=== PATIENT | male | born 2005 | race Caucasian/White ===

== ENCOUNTER 2024-08-01 17:35 | Inpatient (IN) ==
[2024-08-01] MEDS: diphenhydrAMINE 50 MG/ML VIAL ONE (17:44)
[2024-08-01] MEDS: FAMOTIDINE 20MG IV PUSH 20 MG/5 ML SYR IV STA (17:44)
[2024-08-01] MEDS: diphenhydrAMINE 50 MG/ML VIAL IV STA (17:44)
[2024-08-01] MEDS: SODIUM CHLORIDE 0.9% 1,000 ML IV ONE (17:44)
[2024-08-01] MEDS: EPINEPHrine INJ 1 MG/ML AMP IM STA ×2 (17:45→18:29)
[2024-08-01] MEDS: EPINEPHrine ADULT AUTO-INJECT 0.3 MG SYR IM ONE ×2 (17:47→17:48)
[2024-08-01] MEDS: methylPREDNISolone 125 MG/2 ML VIAL IV STA (17:53)
[2024-08-01] MEDS: ONDANSETRON INJ 2 MG/ML 2 ML VIAL IV STA (17:53)
--- NOTE | 2024-08-01 18:05 | Emergency Department Note ---
History of Present Illness General Chief complaint: Allergic Reaction Stated complaint: ALLERGIC REACTION, NUTS History of Present Illness Provider complaint: allergic reaction and hives Onset (ago): minute(s) 15 Exposure: food (Tree nuts) Known history of allergy to: Tree nuts Symptoms: rash, itching, facial swelling, difficulty swallowing and difficulty breathing Maximum Pain Intensity: 3 Treatment prior to arrival: none Home Medications Medication Instructions Recorded Confirmed Type albuterol sulfate 90 mcg/actuation 2 puff inhalation TID 08/01/24 08/01/24 History aerosol inhaler famotidine 20 mg tablet 20 mg PO BID 08/01/24 08/01/24 History methylphenidate HCl 40 mg biphasic 40 mg PO QAM 08/01/24 08/01/24 History 50-50 capsule,extended release naproxen 500 mg tablet 500 mg PO BID PRN Pain 08/01/24 08/01/24 History ondansetron HCl 4 mg tablet 4 mg PO Q8H PRN n/v 08/01/24 08/01/24 History pantoprazole 40 mg tablet,delayed 40 mg PO DIRECTED 08/01/24 08/01/24 History release Allergies Allergy/AdvReac Type Severity Reaction Status Date / Time tree nut Allergy Severe Unknown Unverified 08/01/24 18:30 Past Med/Surg History Problem List (Updated 08/01/24 @ 19:49 by Daniela Bartholomew) Anaphylaxis (Acute) Medical History (Updated 08/01/24 @ 19:49 by Daniela Bartholomew) Asthma Surgical History No pertinent past surgical history Social History Smoking Status: Current every day smoker Tobacco Type: E-cigarettes / Vaping Hx Alcohol Use: Yes Alcohol type: beer and hard liquor Hx Substance Use: Yes Last Used Substance Other:: a week ago Substance Use Type Other:: mushrooms Preferred Language: Polish Communication Ability: Effective Vice [employer] Required: No Beliefs That Will Affect Care: None Current Living Situation: Other Current Living Situation Comment: with roommates at [facility] Other Information That Helps Us Care for You: No Feels Safe at Home: Yes Safety Concerns: Feels Safe At This Time Assistive Devices: None Physical Exam Vital Signs Vital Signs - 24 hr 08/01/24 17:36 08/01/24 17:40 08/01/24 17:44 Temperature 36.6 C Temperature Source Oral Pulse Rate 140 H 134 H Pulse Rate [Apical] 137 H Pulse Rate from SpO2 Sensor Respiratory Rate 30 H 27 H 20 Respiratory Effort / Characteristics Short of Breath Respiratory Depth Normal Respiratory Pattern Tachypnea Regular Blood Pressure 179/120 H 131/99 Blood Pressure [Right Arm] 176/130 H Blood Pressure Mean 139 109 Blood Pressure Mean [Right Arm] 145 Pulse Oximetry 92 94 93 Oxygen Delivery Method Room Air Room Air Room Air Oxygen Flow Rate Sepsis Recent Fever Within 48 Hours No No Sepsis New/Unexplained Change in Mental Status No No Sepsis Action Taken by Nursing Physician Notified No Action Required 08/01/24 17:51 08/01/24 17:54 08/01/24 17:57 Temperature Temperature Source Pulse Rate 133 H 132 H Pulse Rate [Apical] Pulse Rate from SpO2 Sensor 131 H 132 H Respiratory Rate 25 H 18 Respiratory Effort / Characteristics Respiratory Depth Respiratory Pattern Blood Pressure 136/107 H Blood Pressure [Right Arm] Blood Pressure Mean 112 Blood Pressure Mean [Right Arm] Pulse Oximetry 94 92 Oxygen Delivery Method Room Air Room Air Oxygen Flow Rate Sepsis Recent Fever Within 48 Hours Sepsis New/Unexplained Change in Mental Status Sepsis Action Taken by Nursing 08/01/24 17:58 08/01/24 18:01 08/01/24 18:01 Temperature Temperature Source Pulse Rate 135 H Pulse Rate [Apical] Pulse Rate from SpO2 Sensor Respiratory Rate Respiratory Effort / Characteristics Respiratory Depth Respiratory Pattern Blood Pressure 119/94 Blood Pressure [Right Arm] Blood Pressure Mean 105 Blood Pressure Mean [Right Arm] Pulse Oximetry 94 Oxygen Delivery Method Room Air Oxygen Flow Rate Sepsis Recent Fever Within 48 Hours Sepsis New/Unexplained Change in Mental Status Sepsis Action Taken by Nursing 08/01/24 18:01 08/01/24 18:03 08/01/24 18:09 Temperature Temperature Source Pulse Rate 127 H 137 H Pulse Rate [Apical] Pulse Rate from SpO2 Sensor 127 H 136 H Respiratory Rate 22 26 H Respiratory Effort / Characteristics Respiratory Depth Respiratory Pattern Blood Pressure 119/94 Blood Pressure [Right Arm] Blood Pressure Mean 105 Blood Pressure Mean [Right Arm] Pulse Oximetry 93 91 Oxygen Delivery Method Oxygen Flow Rate Sepsis Recent Fever Within 48 Hours Sepsis New/Unexplained Change in Mental Status Sepsis Action Taken by Nursing 08/01/24 18:10 08/01/24 18:12 08/01/24 18:15 Temperature Temperature Source Pulse Rate 132 H 130 H Pulse Rate [Apical] Pulse Rate from SpO2 Sensor 133 H 130 H Respiratory Rate 29 H 20 Respiratory Effort / Characteristics Respiratory Depth Respiratory Pattern Blood Pressure 120/90 Blood Pressure [Right Arm] Blood Pressure Mean 105 Blood Pressure Mean [Right Arm] Pulse Oximetry 90 90 Oxygen Delivery Method Room Air Oxygen Flow Rate Sepsis Recent Fever Within 48 Hours Sepsis New/Unexplained Change in Mental Status Sepsis Action Taken by Nursing 08/01/24 18:20 08/01/24 18:24 08/01/24 18:30 Temperature Temperature Source Pulse Rate 132 H 138 H Pulse Rate [Apical] Pulse Rate from SpO2 Sensor 132 H 138 H Respiratory Rate 19 33 H Respiratory Effort / Characteristics Respiratory Depth Respiratory Pattern Blood Pressure 138/95 Blood Pressure [Right Arm] Blood Pressure Mean 114 Blood Pressure Mean [Right Arm] Pulse Oximetry 93 Oxygen Delivery Method Room Air Oxygen Flow Rate Sepsis Recent Fever Within 48 Hours Sepsis New/Unexplained Change in Mental Status Sepsis Action Taken by Nursing 08/01/24 18:30 08/01/24 18:30 08/01/24 18:39 Temperature Temperature Source Pulse Rate 118 H Pulse Rate [Apical] Pulse Rate from SpO2 Sensor 118 H Respiratory Rate 27 H Respiratory Effort / Characteristics Respiratory Depth Respiratory Pattern Blood Pressure 124/86 124/86 Blood Pressure [Right Arm] Blood Pressure Mean 103 103 Blood Pressure Mean [Right Arm] Pulse Oximetry 94 Oxygen Delivery Method Nebulizer Oxygen Flow Rate 6 Sepsis Recent Fever Within 48 Hours Sepsis New/Unexplained Change in Mental Status Sepsis Action Taken by Nursing 08/01/24 18:40 08/01/24 18:42 08/01/24 19:00 Temperature Temperature Source Pulse Rate 119 H 114 H Pulse Rate [Apical] Pulse Rate from SpO2 Sensor 118 H 114 H Respiratory Rate 22 16 Respiratory Effort / Characteristics Respiratory Depth Respiratory Pattern Blood Pressure 147/84 H 155/93 H Blood Pressure [Right Arm] Blood Pressure Mean 112 113 Blood Pressure Mean [Right Arm] Pulse Oximetry 94 96 Oxygen Delivery Method Nasal Cannula Nasal Cannula Oxygen Flow Rate 2 3 Sepsis Recent Fever Within 48 Hours Sepsis New/Unexplained Change in Mental Status Sepsis Action Taken by Nursing 08/01/24 19:30 Temperature Temperature Source Pulse Rate 112 H Pulse Rate [Apical] Pulse Rate from SpO2 Sensor 112 H Respiratory Rate 20 Respiratory Effort / Characteristics Respiratory Depth Respiratory Pattern Blood Pressure 135/77 Blood Pressure [Right Arm] Blood Pressure Mean 96 Blood Pressure Mean [Right Arm] Pulse Oximetry 97 Oxygen Delivery Method Nasal Cannula Oxygen Flow Rate 3 Sepsis Recent Fever Within 48 Hours Sepsis New/Unexplained Change in Mental Status Sepsis Action Taken by Nursing Physical Exam HENT: Exam performed. - Head: Normocephalic and atraumatic. - Right Ear: External ear normal. No mastoid erythema - Left Ear: External ear normal. No mastoid erythema - Mouth/Throat: The oropharynx is clear and moist. No trismus in the jaw. No dental abscesses or uvula swelling. No oropharyngeal exudate or tonsillar abscesses. No tongue swelling. EYES: Conjunctivae and EOM are normal. Pupils are equal, round, and reactive to light. Right eye exhibits no discharge. Left eye exhibits no discharge. No scleral icterus. NECK: Normal range of motion. Neck supple. No JVD present. CV: Tachycardic rate, regular rhythm, normal heart sounds and intact distal pulses. There is no peripheral edema. Palpable radial pulses bue. PULM/CHEST: Effort normal and breath sounds normal. No respiratory distress. No stridor. He has no wheezes. He has no rales. - Chest Wall: He exhibits no tenderness. MUSC/SKEL: Normal range of motion. There is no peripheral edema, tenderness or deformity. NEURO: He is alert and oriented to person, place, and time. He has normal strength. No cranial nerve deficit or sensory deficit. Coordination and gait normal. GCS eye subscore is 4. GCS verbal subscore is 5. GCS motor subscore is 6. Cerebellar tests wnl. SKIN: Erythematous with bradycardia. Course Course 1740: The patient was evaluated in room A1. A complete history and physical exam was performed Cardiac monitoring: An order was placed for continuous cardiac monitoring. The monitor shows a rate of [] with [] rhythm interpreted by me 1800: Vital signs stable. Lungs clear to auscultation. Oxygen saturation stable. Will continue to monitor the patient. 182: Called to bedside by nursing. Patient is now hypoxic. Patient now wheezing. Patient states he feels worse. Repeat dose of epinephrine ordered for the patient. DuoNeb ordered for the patient. Patient be placed on supplemental oxygen. 185: Vital signs stable on supplemental oxygen via nasal cannula. Patient states he feels better after receiving second dose of epinephrine IM as well as breathing treatment. Lungs are now clear to auscultation bilaterally. No tongue swelling. No stridor. Mother reported to nursing that the patient has had bad anaphylactic reactions in the past and has had to be on epinephrine drips in the past. [facility] 1904: Vital signs stable supplemental oxygen. Patient states he feels much better. Patient no longer wheezing. No stridor. Lungs clear to auscultation bilaterally. Discussed case with Dr. Aguillon who states he will evaluate the patient for admission. Dr. Aguillon presented to bedside at this time. Administered Medications Albuterol (Albuterol 0.083% Nebu Soln 3 Ml Vial) 2.5 mg NEB Q4H DUYEN; Protocol Stop: 08/31/24 19:29 Last Admin: 08/01/24 20:40 Dose: 2.5 mg Documented By: ORLANDO Sodium Chloride (Nss) 1,000 mls @ 75 mls/hr IV .[id number] DUYEN Stop: 08/02/24 22:09 Last Admin: 08/01/24 20:44 Dose: 75 mls/hr Documented By: ORLANDO Potassium Chloride (K Ernst / Wtr) 10 meq in 100 mls @ 100 mls/hr IV Q1H DUYEN Stop: 08/01/24 23:29 Last Admin: 08/01/24 20:42 Dose: 100 mls/hr Documented By: ORLANDO Discontinued Medications Albuterol (Albut/Ipratrop 3mg/0.5mg Neb 3 Ml Vial) 3 ml NEB NOW STA; Protocol Stop: 08/01/24 18:25 Last Admin: 08/01/24 18:30 Dose: 3 ml Documented By: BRYN Albuterol (Albut/Ipratrop 3mg/0.5mg Neb 3 Ml Vial) Confirm Administered Dose 3 ml .ROUTE .STK-MED ONE Stop: 08/01/24 18:27 Last Admin: 08/01/24 18:30 Dose: Not Given Documented By: BRYN Diphenhydramine HCl (Diphenhydramine 50 Mg/Ml Vial) 50 mg IV NOW STA Stop: 08/01/24 17:39 Last Admin: 08/01/24 17:44 Dose: 50 mg Documented By: BRYN Diphenhydramine HCl (Diphenhydramine 50 Mg/Ml Vial) Confirm Administered Dose 50 mg .ROUTE .STK-MED ONE Stop: 08/01/24 17:42 Last Admin: 08/01/24 17:44 Dose: Not Given Documented By: RBYN Epinephrine HCl (Epinephrine Adult Auto-Inject 0.3 Mg Syr) Confirm Administered Dose 0.3 mg IM .STK-MED ONE Stop: 08/01/24 17:39 Last Admin: 08/01/24 17:47 Dose: Not Given Documented By: HS Epinephrine HCl (Epinephrine Inj 1 Mg/Ml Amp) 0.3 mg IM NOW STA Stop: 08/01/24 17:39 Last Admin: 08/01/24 17:45 Dose: 0.3 mg Documented By: HS Epinephrine HCl (Epinephrine Adult Auto-Inject 0.3 Mg Syr) Confirm Administered Dose 0.3 mg IM .STK-MED ONE Stop: 08/01/24 17:41 Last Admin: 08/01/24 17:48 Dose: Not Given Documented By: HS Epinephrine HCl (Epinephrine Inj 1 Mg/Ml Amp) 0.3 mg IM NOW STA Stop: 08/01/24 18:26 Last Admin: 08/01/24 18:29 Dose: 0.3 mg Documented By: BRYN Sodium Chloride (Nss) 1,000 mls @ 999 mls/hr IV .Q1H1M ONE Stop: 08/01/24 18:38 Last Infusion: 08/01/24 18:48 Dose: Infused Documented By: Admin: 08/01/24 17:44 Dose: 999 mls/hr Documented By: BRYN Famotidine (Pepcid 20mg Iv Push) 20 mg in 5 mls @ 2.5 mls/min IV NOW STA Stop: 08/01/24 17:39 Last Admin: 08/01/24 17:44 Dose: 2.5 mls/min Documented By: BRYN Lorazepam (Lorazepam 1 Mg/1 Ml Syr Ed Inj Use) 1 mg IV ONE STA Stop: 08/01/24 18:06 Last Admin: 08/01/24 18:07 Dose: 1 mg Documented By: BRYN Methylprednisolone (Methylprednisolone 125 Mg/2 Ml Vial) 125 mg IV NOW STA Stop: 08/01/24 17:39 Last Admin: 08/01/24 17:53 Dose: 125 mg Documented By: BRYN Ondansetron HCl (Ondansetron Inj 2 Mg/Ml 2 Ml Vial) 4 mg IV NOW STA Stop: 08/01/24 17:42 Last Admin: 08/01/24 17:53 Dose: 4 mg Documented By: BRYN Medical Decision Making Laboratory Data Attestation: I reviewed the patient's lab results. 08/01/24 19:00 08/01/24 19:00 Lab Results 08/01/24 Range/Units 19:00 WBC 18.68 H (4.8-10.8) K/ul RBC 4.65 L (4.70-6.10) M/uL Hgb 14.9 (14.0-18.0) g/dl Hct 40.0 L (42.0-52.0) % MCV 86.0 (80.0-100.0) fL MCH 31.8 (25.0-34.0) pg MCHC 37.2 H (32.0-36.0) g/dL RDW Std Deviation 37.1 (36.4-46.3) fL RDW Coeff of Dimple 11.8 (11.5-14.5) % Plt Count 472 H (130-400) K/uL MPV 9.6 (9.4-12.4) fL Immature Gran % (Auto) 0.3 % Neut % (Auto) 76.1 % Lymph % (Auto) 18.3 % [place] % (Auto) 3.9 % Eos % (Auto) 1.2 % Baso % (Auto) 0.2 % Neut # (Auto) 14.23 H (1.40-6.50) K/uL Lymph # (Auto) 3.41 H (1.20-3.40) K/uL [place] # (Auto) 0.73 H (0.11-0.59) K/uL Eos # (Auto) 0.22 (0.00-0.50) K/uL Baso # (Auto) 0.03 (0.00-0.20) K/uL Immature Gran # (Auto) 0.06 (0.01-0.20) K/uL Sodium 137 (136-145) mmol/L Potassium 3.2 L (3.5-5.1) mmol/L Chloride 107 (98-107) mmol/L Carbon Dioxide 23 (21-32) mmol/L Anion Gap 7 (3-11) BUN 11 (6-23) mg/dl Creatinine 0.77 (0.6-1.4) mg/dl Est Cr Clr Drug Dosing 165.3 ml/min eGFR 130.62 BUN/Creatinine Ratio 14.3 (10-20) Glucose 134 H (70-99(Fasting)) mg/dl Calcium 8.3 L (8.6-10.3) mg/dl Imaging Data Chest x-ray: Attestation: I personally reviewed and interpreted this imaging study as follows: My impression: Chest x-ray negative. Airway clear. No pneumothorax. No consolidation. No cardiomegaly or cephalization.. No free air under the diaphragm. No fractures of the skeletal structures. Radiologist's impression: Chest X-Ray 08/01/24 18:21 XR chest 1V portable CLINICAL HISTORY: sob TECHNIQUE: Single frontal radiograph of the chest was obtained. Comparison: None available at the time of this dictation. FINDINGS: No lines and tubes are seen. The cardiomediastinal silhouette is normal. The lungs are clear. No evidence of pleural effusion or pneumothorax. IMPRESSION: No acute abnormalities and in particular no radiographic evidence of pneumonia. ACT 112: Negative or not required by law. Electronically signed by: Clayton Sloan M.D. 08/01/2024 7:28 PM [facility] Narrative [facility] Narrative: 174: The patient was evaluated in room A1. A complete history and physical exam was performed Cardiac monitoring: An order was placed for continuous cardiac monitoring. The monitor shows a rate of [] with [] rhythm interpreted by me 1800: Vital signs stable. Lungs clear to auscultation. Oxygen saturation stable. Will continue to monitor the patient. 182: Called to bedside by nursing. Patient is now hypoxic. Patient now wheezing. Patient states he feels worse. Repeat dose of epinephrine ordered for the patient. DuoNeb ordered for the patient. Patient be placed on supplemental oxygen. 1852: Vital signs stable on supplemental oxygen via nasal cannula. Patient states he feels better after receiving second dose of epinephrine IM as well as breathing treatment. Lungs are now clear to auscultation bilaterally. No tongue swelling. No stridor. Mother reported to nursing that the patient has had bad anaphylactic reactions in the past and has had to be on epinephrine drips in the past. Will plan on admitting the patient to the [facility] team. 1904: Vital signs stable supplemental oxygen. Patient states he feels much better. Patient no longer wheezing. No stridor. Lungs clear to auscultation bilaterally. Discussed case with Dr. Aguillon who states he will evaluate the patient for admission. Dr. Aguillon presented to bedside at this time. Impression & Plan Anaphylaxis Critical Care Time Critical Care Time: Yes Total Critical Care Time: 65 I have personally spent greater than 65 minutes of critical care time in the direct management of this patient. This includes bedside care, interpretation of diagnostic studies, and testing, discussion with consultants, patient, and family members, and other required patient management activities. This 65 minutes is in excess of all separately billable procedures. Discharge Plan Visit Data Chief Complaint: Allergic Reaction Stated Complaint: ALLERGIC REACTION, NUTS ED Provider: aZin Padilla Discharge Problem: Anaphylaxis Patient Disposition: Admitted As Inpatient Discharge Instructions Interventions: ED Discharge Assessment Last Done: 08/01/24 21:09 Discharge Problem: Anaphylaxis Qualifiers: Encounter type: initial encounter Qualified Code(s): T78.2XXA - Anaphylactic shock, unspecified, initial encounter
[2024-08-01] MEDS: LORazepam 1 MG/1 ML SYR ED Inj Use IV STA (18:07)
[2024-08-01] MEDS: ALBUT/IPRATROP 3MG/0.5MG NEB 3 ML VIAL ONE (18:30)
[2024-08-01] MEDS: ALBUT/IPRATROP 3MG/0.5MG NEB 3 ML VIAL NEB STA (18:30)
[2024-08-01] MEDS ORDERED: LEVALBUTEROL 0.31MG/3 ML VIAL NEB PRN (19:20)
[2024-08-01] MEDS ORDERED: EPINEPHrine INJ 1 MG/ML AMP IM PRN (19:23)
[2024-08-01] MEDS ORDERED: ONDANSETRON INJ 2 MG/ML 2 ML VIAL IV PRN (19:29)
--- NOTE | 2024-08-01 19:29 | XRay Report ---
XR chest 1V portable CLINICAL HISTORY: sob TECHNIQUE: Single frontal radiograph of the chest was obtained. Comparison: None available at the time of this dictation. FINDINGS: No lines and tubes are seen. The cardiomediastinal silhouette is normal. The lungs are clear. No evid ence of pleural effusion or pneumothorax. IMPRESSION: No acute abnormalities and in particular no radiographic evidence of pneumonia. ACT 112: Negative or not required by law. Electronically signed by: Clayton Sloan M.D. 08/01/2024 7:28 PM
[2024-08-01 19:30] LABS: BUN Creatinine Ratio 14.3 (10-20); Calcium 8.3 mg/dl (8.6-10.3); Creatinine Clr Calc Pharmacy 165.3 ml/min; Potassium 3.2 mmol/L (3.5-5.1)
[2024-08-01 19:41] LABS: Basophils # (auto) 0.03 K/uL (0.00-0.20); Basophils % (auto) 0.2 %; Eosinophils # (auto) 0.22 K/uL (0.00-0.50); Eosinophils % (auto) 1.2 %; Hemoglobin 14.9 g/dl (14.0-18.0); Immature Granulocytes # (auto) 0.06 K/uL (0.01-0.20); Immature Granulocytes % (auto) 0.3 %; Lymphocytes # (auto) 3.41 K/uL (1.20-3.40); Lymphocytes % (auto) 18.3 %; Mean Corpuscular Hemoglobin 31.8 pg (25.0-34.0); Mean Corpuscular Hgb Conc 37.2 g/dL (32.0-36.0); Mean Platelet Volume 9.6 fL (9.4-12.4); Monocytes # (auto) 0.73 K/uL (0.11-0.59); Monocytes % (auto) 3.9 %; Neutrophils # (auto) 14.23 K/uL (1.40-6.50); Neutrophils % (auto) 76.1 %; Platelet Count 472 K/uL (130-400); RDW Coefficient of Variation 11.8 % (11.5-14.5); RDW Standard Deviation 37.1 fL (36.4-46.3); Red Blood Count 4.65 M/uL (4.70-6.10); White Blood Count 18.68 K/ul (4.8-10.8)
--- NOTE | 2024-08-01 19:44 | History & Physical Report ---
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 See above in HPI. Patient has history of needing multiple doses of epinephrine followed by epinephrine drip and ICU stay in the past. Patient received Benadryl, famotidine, Solu-Medrol in the ED. At bedside exam, no wheezing noted, patient on 3 L nasal cannula oxygen, patient reports improving symptoms. Epinephrine as needed every 5-minute, if needing more frequently, patient will need ICU transfer for possible epinephrine drip. Continue with famotidine, Solu-Medrol, Benadryl, albuterol nebulization currently scheduled/can de-escalate to as needed once respiratory status improves. Will monitor patient in PCU telemetry. N.p.o. for now, Continue with IV fluids. Diet can be resumed once deemed stable from anaphylaxis standpoint. F/u w/ booking police officer once discharged. Pt advised to carry epipen with him all the time. History of gout: Continue with IV PPI. Patient on IV Pepcid as well. DVT prophylaxis: SCDs, Expect discharge in less than 3 days. Full code History of Present Illness Chief Complaint: Anaphylactic reaction to tree nuts Primary Care Provider: Jimi Angel MD 19-year-old male with PMH of allergic reaction to tree nuts, past hospitalization with anaphylaxis [latest one in 2016, needed ICU stay and epinephrine drip], GERD diagnosed recently and on Protonix & Pepcid at home, asthma presented to the ED with developing allergic reaction after he ingested tree nut containing food today. He did not have EpiPen with him, his first EpiPen dose was in the ED. At presentation, patient was wheezing, had choking sensation, palpitation, had belly pain. After first dose of epi, he improved and then again he started getting wheezing and respiratory distress. He received another dose of epinephrine with improvement in his symptoms. No stridor or tongue swelling was noted per ED physician. Patient reports drinking alcohol over the weekends, reports vaping nicotine, denies recreational drug use. Full code as per my discussion with the patient and his family at bedside. Patient's friend/sister/mom were at bedside, medications were reviewed in detail, plan of care discussed in detail. They voiced understanding and were agreeable to plan of care. Allergies Allergy/AdvReac Type Severity Reaction Status Date / Time tree nut Allergy Severe Unknown Unverified 08/01/24 18:30 Home Medications Medication Instructions Recorded Confirmed Type albuterol sulfate 90 mcg/actuation 2 puff inhalation TID 08/01/24 08/01/24 History aerosol inhaler famotidine 20 mg tablet 20 mg PO BID 08/01/24 08/01/24 History methylphenidate HCl 40 mg biphasic 40 mg PO QAM 08/01/24 08/01/24 History 50-50 capsule,extended release naproxen 500 mg tablet 500 mg PO BID PRN Pain 08/01/24 08/01/24 History ondansetron HCl 4 mg tablet 4 mg PO Q8H PRN n/v 08/01/24 08/01/24 History pantoprazole 40 mg tablet,delayed 40 mg PO DIRECTED 08/01/24 08/01/24 History release Past Med/Surg History Problem List (Updated 08/01/24 @ 19:07 by Zain Padilla MD) Anaphylaxis (Acute) Medical History No acute medical problems Surgical History No pertinent past surgical history Social History Smoking Status: Current every day smoker Tobacco Type: E-cigarettes / Vaping Preferred Language: Faroese Feels Safe at Home: Yes Review of Systems Review of Systems: Negative otherwise mentioned in HPI. Physical Exam Physical Exam: GENERAL: Alert and oriented x3. NAD, on 3L NC O2. Flushed appearance of face and upper body skin. HEENT: No pallor, no icterus. Pupils equal, round and reactive to light. Oral mucosa moist. Mild lip swelling noted, no tongue swelling noted. NECK: No JVD, no neck masses. HEART: S1 and S2 heard. Regular rate and rhythm. Tachy in 110s. No murmur, no gallop. RESPIRATORY SYSTEM: Normal AP diameter. No accessory muscle use. No wheezing, no crackles. ABDOMEN: Soft, bowel sounds present, Mild epi tender noted, no distention. CENTRAL NERVOUS SYSTEM: No facial droop. Speech is clear. Obeys simple commands. Moves extremities. EXTREMITIES: No edema, no erythema seen. Results & Data Results & Data Vital Signs (Past 12 Hours) Vital Signs Temp Pulse Pulse Resp BP BP Pulse Ox 08/01/24 19:00 114 H 16 155/93 H 96 08/01/24 18:42 119 H 22 94 08/01/24 18:40 147/84 H 08/01/24 18:39 118 H 27 H 94 08/01/24 18:30 124/86 08/01/24 18:30 124/86 08/01/24 18:30 138 H 33 H 93 08/01/24 18:24 132 H 19 08/01/24 18:20 138/95 08/01/24 18:15 130 H 20 90 08/01/24 18:12 132 H 29 H 90 08/01/24 18:10 120/90 08/01/24 18:09 137 H 26 H 91 08/01/24 18:03 127 H 22 93 08/01/24 18:01 119/94 08/01/24 18:01 119/94 08/01/24 18:01 135 H 08/01/24 17:58 94 08/01/24 17:57 132 H 18 92 08/01/24 17:54 133 H 25 H 94 08/01/24 17:51 136/107 H 08/01/24 17:44 36.6 C 134 H 20 131/99 93 08/01/24 17:40 137 H 27 H 176/130 H 94 08/01/24 17:36 140 H 30 H 179/120 H 92 O2 Del Method O2 Flow Rate 08/01/24 19:00 Nasal Cannula 3 08/01/24 18:42 Nasal Cannula 2 08/01/24 18:40 08/01/24 18:39 Nebulizer 6 08/01/24 18:30 08/01/24 18:30 08/01/24 18:30 Room Air 08/01/24 18:24 08/01/24 18:20 08/01/24 18:15 Room Air 08/01/24 18:12 08/01/24 18:10 08/01/24 18:09 08/01/24 18:03 08/01/24 18:01 08/01/24 18:01 08/01/24 18:01 08/01/24 17:58 Room Air 08/01/24 17:57 Room Air 08/01/24 17:54 Room Air 08/01/24 17:51 08/01/24 17:44 Room Air 08/01/24 17:40 Room Air 08/01/24 17:36 Room Air (1) Anaphylaxis Encounter type: initial encounter Qualified Code(s): T78.2XXA - Anaphylactic shock, unspecified, initial encounter
[2024-08-01] MEDS: ALBUTEROL 0.083% NEBU SOLN 3 ML VIAL NEB SCH (20:40)
[2024-08-01] MEDS: POTASSIUM CHLORIDE / WTR 10 MEQ/100 ML PLCT IV SCH (20:42)
[2024-08-01] MEDS: SODIUM CHLORIDE 0.9% 1,000 ML IV SCH (20:44)
[2024-08-01] MEDS: diphenhydrAMINE 50 MG/ML VIAL IV SCH (23:13)
[2024-08-02] MEDS ORDERED: ALBUT/IPRATROP 3MG/0.5MG NEB 3 ML VIAL NEB SCH (01:00)
--- OUTSIDE RECORDS SUMMARY | 2024-08-02 04:05 | External Medical Summary | Summary of Care ---
Author Name Unknown Organization [facility] Address [address] [place] [address] Phone [phone] Care Team Providers Care Car Detailer Name Role Phone Jimi Angel MD Primary Care Provider [phone] Reason for Visit * Reason Comments Abdominal Pain ULQ Encounter Details Date Type Department Care Team (Latest Contact Info) Description 07/22/2024 6:40 PM EDT Convenient Care Visit [facility] [address] [place] [address] Blank Blevins PA-C [address] [facility] [address] Left flank pain*; Nausea and vomiting, unspecified vomiting type Allergies Active Allergy Reactions Criticality Noted Date Comments Peanut-Containing Drug Products Anaphylaxis High TREE NUTS documented as of this encounter (statuses as of 07/22/2024) Medications Medication Sig Dispensed Refills Start Date End Date Status EpiPen 2-Devon 0.3 MG/0.3ML Injection Solution Auto-injector For a severe reaction: Place orange end against the outer thigh, press firmly, hold in place for 10 seconds and go to the Emergency room. 1 Each 2 09/17/2021 Active ProAir HFA 108 (90 Base) MCG/ACT Inhalation Aerosol SolutionIndications:M ild intermittent cold-induced asthma without complication Inhale 2 Puffs by mouth in the morning and 2 Puffs at noon and 2 Puffs in the evening and 2 Puffs before bedtime. 18 g 3 07/19/2024 Active Methylphenidate HCl ER (LA) 40 MG Oral Capsule Extended Release 24 Hour (Ritalin LA)Indications:Attent ion deficit disorder (ADD) without hyperactivity Take 1 Capsule by mouth in the morning. In the morning. Do not cut, crush or chew. 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 021 History of drug abuse 08/26/2021 Attention deficit disorder (ADD) without hyperac tivity 08/26/2021 documented as of this encounter (statuses as of 07/22/2024) Immunizations Name Administration Dates Next Due COVID-19 mRNA, LNP-s, No Pre serve, 2-Dose Series (Moderna) 08/27/2021,07/30/2021 DTaP Dipth/Tet/Acell Pertussis (Infanrix), Peds 02/12/2007,07/24/2004,2003,05/08,2003 HIB PRP-T, 4 Dose, PF, IM (H iberix, ActHib) 04/24/2004,2003,2003,03/31 HPV Vaccine, 9-Valent 03/18/2022,07/26/2019,05/2019 Hepatitis B, 0-19 yrs 2003,2003,02/17 MMR - Measles/Mumps/Rubella Vaccine 02/12/2007,0 04/24/2004 Meningococcal MCV4P Conjugat e Vaccine (Menactra) 05/26/2019 OPV - Polio Virus Vaccine (Oral) 007,2003,2003,03/30 Pneumococcal Conjugate Vacc, 13 Valent (Prevnar) 07/24/2004,2003,2003,03/30 Seasonal Influenza Virus Vac cine, Unspecified Formulation 07/30/2021 Seasonal Influenza, PF, 6 M & above, IM , (FluLaval or Fluzone) 10/05/2023 TDAP (age 10 and older)(Boostrix) 03/18/2022 Varicella Vaccine (Chicken Pox) 03/07/2008,01/21 documented as of this encounter Social History Tobacco Use Types Packs/Day Years Used Date Smoking Tobacco: Former Cigarettes Q uit: 07/2019 PHQ-2 Answer Date Recorded PHQ Adult Total Score 0 05/24/2024 Hunger Vital Sign Answer Date Recorded Within the past 12 months, y ou worried that your food would run out before you got the money to buy more. Never true 05/24/20 24 Within the past 12 months, t he food you bought just didn't last and you didn't have money to get more. Never true 05/24/2024 Childcare Answer Date Recorded Do you feel overwhelmed with taking care of a child, family member or friend? No 05/24/2024 Does your family need help f inding childcare? (Household - for ages 0-17 years) Not on file 05/24/2024 Clothing Answer Date Recorded Have you been unable to get clothing when it was really needed? No 05/24/2024 Is your family able to get c lothes or diapers when needed? (Household - for ages 0-17 years) Not on file 05/24/2024 Personal Safety Answer Date Recorded Do you feel unsafe or have concerns for your saf ety? No 05/24/2024 Do you have concerns for you r family's safety? (Household - for ages 0-17 years) Not on file 05/24/2024 Utilities Answer Date Recorded Do you have trouble paying y our heating, water, or electric bill? No 05/24/2024 Is your family able to pay t he heat, water, or electric bill? (Household - for ages 0-17 years) Not on file 05/24/2024 Does your family have access to good internet? (Household - for ages 0-17 years) Not on file 05/24/2024 Employment Status Answer Date Recorded Are you unemployed or without regular income? No 05/24/2024 Does the household have a re gular source of income? (Household - for ages 0-17 years) Not on file 05/24/2024 Social Connections Answer Date Recorded How often do you feel lonely or isolated from th ose around you? Rarely 05/24/2024 Financial Resource Strain Answer Date R ecorded Do you have any trouble payi ng for your medications, or do you think you might in the future? Yes 05/24/2024 Does your family have troubl e paying for medicine? (Household - for ages 0-17 years) Not on file 05/24/2024 Transportation Needs Answer Date Record ed Do you have trouble getting a ride to medical visits or work? (Adult - for ages 18 years and over) Not on file 05/24/2024 Does your family have a hard time getting a ride to doctors visits? (Household - for ages 0-17 years) Not on file 05/24/2024 Has lack of transportation k ept you from medical appointments, meetings, work, or from getting things needed for daily living? Check all that apply. No 05/24/2024 Do you (or your family) have trouble finding or paying for a ride (transportation)? (Household - for ages 0-17 years) Not on file 05/24/2024 Housing Stability Answer Date Recorded Do you currently live in a s helter or have no steady place to sleep at night? No 05/24/2024 Do you think you are at risk of becoming homeless? (Adult - for ages 18 years and over) Not on file 05/24/2024 Does your family worry about paying for your home or becoming homeless? (Household - for ages 0-17 years) Not on file 0 05/24/2024 Are you homeless or worried that you might be in the future? No 05/24/2024 Are you (or your family) lola eless or worried that you might be in the future? (Household - for ages 0-17 years) Not on file Food Insecurity Answer Date Recorded Do you need food for this week? No 05/24/2024 Are you able to get enough f ood for your family? (Household - for ages 0-17 years) Not on file 05/24/2024 Does your family need food t his week? (Household - for ages 0-17 years) Not on file 05/24/2024 Do you always have enough fo od for your family? (Household - for ages 0-17 years) Not on file 05/24/2024 Sex and Gender Information Value Date Recorded Sex Assigned at Not on file Gender Identity Not on file Sexual Orientation Not on file Job Start Date Occupation Industry Not on file Not on file Not on file documented as of this encounter Last Filed Vital Signs Vital Sign Reading Time Taken Comments Blood Pressure 130/84 07/22/2024 6:43 PM EDT Pulse 72 07/22/2024 6:43 PM EDT Temperature 36.3 C (97.4 F) 07/22/2024 6:43 PM ED T Respiratory Rate 18 07/22/2024 6:43 PM EDT Oxygen Saturation 98% 07/22/2024 6:43 PM EDT Inhaled Oxygen Concentration - - Weight 75.9 kg (167 lb 6.4 oz) 07/22/2024 6:43 P M EDT Height 193 cm (6' 4") 07/22/2024 6:43 PM EDT Body Mass Index 20.38 07/22/2024 6:43 PM EDT documented in this encounter Progress Notes * Blank Blevins PA-C - 07/22/2024 6:40 PM EDT Subjective: Nursing Notes: Nilam Narayan, MED ASSIST 07/22/24 184 Signed Carmen Mosley is a 19 year old male who presents to walk-in clinic today complaining of Chief Complaint Patient presents with Abdominal Pain ULQ Brief history:pt presents this evening with ULQ discomfort. He states the pain radiates upwards andunder his rib area - ongoing since yesterday. When he sits in a shifted position leaning towards the left side of his body he states that helps the discomfort. Denies constipation - last BM was today Denies urge to urinate or burning with urination Onset/duration yesterday . Tried tylenol Effectiveness no Patient is accompanied by no one for today's visit. Sx are cough, LUQ pain x 1 day, N/V, vomited 2 times today, has nausea and feels like could throw up again Left side pain and points to left CVA area Pt has pain w walking. Is not able to get in a comfortable position no sick contacts at home. Sig med hx/risk factors: asthma, hx drug abuse , ADD, ZACH, peanut allergy no flu shot this year. Review of Systems Constitutional: Positive for activity change, appetite change and fatigue. Respiratory: Negative. Cardiovascular: Negative. Gastrointestinal: Positive for abdominal pain (left upper quadrant and radiates around), nausea andvomiting. Negative for abdominal distention, anal bleeding, blood in stool, constipation and diarrhea. Genitourinary: Positive for flank pain (left). Negative for dysuria, frequency, hematuria and urgency. Hematological: Negative for adenopathy. 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 1 Each 2 ProAir HFA 108 (90 Base) MCG/ACT Inhalation Aerosol Solution Inhale 2 Puffs by mouth in the morningand 2 Puffs at noon and 2 Puffs in the evening and 2 Puffs before bedtime. 18 g 3 Methylphenidate HCl ER (LA) 40 MG Oral Capsule Extended Release 24 Hour (Ritalin LA) Take 1 Capsuleby mouth in the morning. In the morning. Do not cut, crush or chew. 30 Capsule 0 No current facility-administered medications for this visit. 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 09/17/2021 ZACH (generalized anxiety disorder) 01/15/2022 Past Surgical History: Procedure Laterality Date [place] TONSILLECTOMY PRIMARY/SECONDARY LESS THAN AGE 12 2009 [place] TYMPANOSTOMY GENERAL ANESTHESIA 2002, 2003, 2004, 2008 REMOVAL OF ADENOIDS, AGE 12+ SINUS SURGERY PROCEDURE NEC 2008 Review of patient's allergies indicates: Allergen Reactions Peanut-Containing Drug Products Anaphylaxis TREE NUTS Objective: BP 130/84 | Pulse 72 | Temp 36.3 C (97.4 F) (Tympanic) | Resp 18 | Ht 1.93 m (6' 4") | Wt 75.9 kg (167 lb 6.4 oz) | SpO2 98% | BMI 20.38 kg/m | BSA 2.02 m Physical Exam Constitutional: General: He is in acute distress. Appearance: He is ill-appearing. He is not toxic-appearing or diaphoretic. Cardiovascular: Rate and Rhythm: Normal rate and regular rhythm. Abdominal: General: Bowel sounds are decreased. Palpations: There is no hepatomegaly or splenomegaly. Tenderness: There is abdominal tenderness in the left upper quadrant. There is left CVA tenderness,guarding and rebound. There is no right CVA tenderness. Negative signs include Domínguez's sign and McBurney's sign. Hernia: No hernia is present. Skin: General: Skin is warm and dry. Neurological: General: No focal deficit present. Psychiatric: Mood and Affect: Mood normal. Behavior: Behavior normal. ASSESSMENT/PLAN: Left flank pain (Primary) - URINALYSIS, POINT OF CARE (ENTER/EDIT) Nausea and vomiting, unspecified vomiting type - URINALYSIS, POINT OF CARE (ENTER/EDIT) Contacted [facility] ER and spoke with charge nurse and presented case and that pt will be goingto their ER. Return instruction reviewed with pt in detail. Reasons to report to the ED were also reviewed. Voiced understanding Advised to follow up if no improvement in 3-5days. Blank Blevins PA-C documented in this encounter Nursing Notes * Nilam Narayan MED ASSIST - 07/22/2024 6:46 PM EDT Carmen Mosley is a 19 year old male who presents to walk-in clinic today complaining of Chief Complaint Patient presents with Abdominal Pain ULQ Brief history:pt presents this evening with ULQ discomfort. He states the pain radiates upwards andunder his rib area - ongoing since yesterday. When he sits in a shifted position leaning towards the left side of his body he states that helps the discomfort. Denies constipation - last BM was today Denies urge to urinate or burning with urination Onset/duration yesterday . Tried tylenol Effectiveness no Patient is accompanied by no one for today's visit. documented in this encounter Plan of Treatment Health Maintenance Due Date Last Done Comments Yearly Wellness Visit 2007 Pneumococcal Vaccine: Pediat rics (0 to 5 Years) and At-Risk Patients (6 to 64 Years) (1 of 1 - PPSV23 or PCV20) 2009 07/24/2004, 2003, 2003, Additional history exists HIV Screening 2018 Hepatitis C Screening 2021 *SPIROMETRY ONCE FOR ASTHMA-ADULT 09/11/2022 COVID-19 Vaccine (3 - 2023-2 5 season) 2024 08/27/2021, 07/30/2021 Influenza Vaccine (FLU shot) (#1) 2024 10/05/2023, 09/10/2022, 07/30/2021 Depression Screening 05/24/2025 05/24/2024 DTap/Tdap Vaccines (7 - Td o r Tdap) 03/18/2032 03/18/2022, 02/12/2007, 07/24/2004, Additional history exists Hepatitis B Vaccine Completed 2003, 2003, 2003 MENINGOCOCCAL (MENACTRA/MENVEO) Completed 9 HPV (Gardasil) Vaccine Completed , 07/26/2019, 05/26/2019 documented as of this encounter Medical Devices Not on filedocumented as of this encounter Procedures Procedure Name Priority Date/Time Associated Diagnosis Comments URINALYSIS, POINT OF CARE (ENTER/EDIT) Routine 07/22/2024 7:03 PM EDT Left flank pain Nausea and vomiting, unspecified vomiting type documented in this encounter Results * (ABNORMAL) URINALYSIS, POINT OF CARE (ENTER/EDIT) (07/22/2024 7:03 PM EDT) Color, Urine Yellow Yellow or Light Yellow Clarity, Urine Cloudy(A) Clear Glucose, Urine Negative Negative mg/dL Bilirubin, Urine Negative Negative Ketone, Urine Negative Negative mg/dL Specific [place], Urine 1.025 1.003 - 1.030 Blood, Urine Negative Negative pH, Urine 7.0 5.0 - 7.5 units Protein, Urine 30(A) Negative mg/dL Urobilinogen, Urine 1.0 0.2 - 1.0 mg/dL Nitrite, Urine Negative Negative Esterase, Urine Negative Negative Urine 07/22/2024 7:03 PM EDT Blank Blevins PA-C LAB POINT OF C ARE TEST ENTER/EDIT ORDERABLES documented in this encounter Visit Diagnoses Diagnosis Left flank pain- Primary Abdominal pain, unspecified site Nausea and vomiting, unspecified vomiting type documented in this encounter Care Teams Car Detailer Relationship Specialty Start Date End Date Jimi Angel MD [address] [place] [address] PCP - General Family Medicine 01/15/22 documented as of this encounter
--- OUTSIDE RECORDS SUMMARY | 2024-08-02 04:05 | External Medical Summary | Summary of Care ---
Author Name Unknown Organization [facility] Address [address] [facility] [place] [place] [address] Phone [phone] Care Team Providers Care Chain Testing Machine Operator Name Role Phone Jimi Angel MD Primary Care Provider [phone] Encounter Details Date Type Department Care Team (Late st Contact Info) Description 07/22/2024 Result Scan Unspecified Department <No scans attached> Allergies Active Allergy Reactions Criticality Noted Date Comments Peanut-Containing Drug Products Anaphylaxis High TREE NUTS documented as of this encounter (statuses as of 07/26/2024) Medications Medication Sig Dispensed Refills Start Date [...] as of this encounter (statuses as of 07/26/2024) Active Problems Problem Noted Date Diagnosed Date ZACH (generalized anxiety disorder) 01/15/2022 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 021 History of drug abuse 08/26/2021 Attention deficit disorder (ADD) without hyperac tivity 08/26/2021 documented as of this encounter (statuses as of 07/26/2024) Immunizations Name Administration Dates Next Due COVID-19 [...] on file documented as of this encounter Plan of Treatment Health Maintenance [...] Procedure Name Priority Date/Time Associated Diagnosis Comments RADIOLOGY SCANNED RESULT 07/22/2024 documented in this encounter Results * RADIOLOGY SCANNED RESULT (07/22/2024) 07/22/2024 No Physician Data Unknown DIAGNOSTIC RAD IOLOGY SERVICES documented in this encounter Care Teams Chain Testing Machine Operator Relationship Specialty Start Date End Date Jimi Angel MD [address] [facility] [place] [address] PCP - General Family Medicine 01/15/22 documented as of this encounter
--- OUTSIDE RECORDS SUMMARY | 2024-08-02 04:06 | External Medical Summary | Summary of Care ---
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 1 Each 2 09/17/2021 Active hydrOXYzine HCl 50 MG Oral Tablet Take by mouth 1 Tablet as needed in the morning AND 1 Tablet as needed at noon AND 1 Tablet as needed in the evening AND 1 Tablet as needed before bedtime for Anxiety. 120 Tablet 3 01/15/2022 Active Lisdexamfetamine Dimesylate 40 MG Oral Capsule (Vyvanse)Indication s:Attention deficit disorder (ADD) without hyperactivity Take 1 Capsule by mouth in the morning. 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 021 History of drug abuse 08/26/2021 Attention deficit disorder (ADD) without hyperac tivity 08/26/2021 documented as of this encounter (statuses as of 03/30/2024) Immunizations Name Administration Dates Next Due COVID-19 mRNA, LNP-s, No Pre serve, 2-Dose Series (Moderna) 08/27/2021,07/30/2021 DTaP Dipth/Tet/Acell Pertussis (Infanrix), Peds 02/12/2007,07/24/2004,2003,05/08,2003 HIB PRP-T, 4 dose (ActHib) 04/24/2004,,2003,03/31 HPV Vaccine, 9-Valent 03/18/2022,07/26/2019,080 05/2019 Hepatitis B, 0-19 yrs 2003,2003,02/17 MMR - [...] Smoking Tobacco: Former Cigarettes Q uit: 07/2019 Sex and Gender Information Value Date Recorded Sex Assigned at Not on file Gender Identity Not on file Sexual Orientation Not on file Job Start Date Occupation Industry Not on file Not on file Not on file documented as of this encounter Miscellaneous Notes * Telephone Encounter - Cyn Lares MD - 03/30/2024 9:07 AM EDTSigned Prescriptions: Disp Refills ProAir HFA 108 (90 Base) MCG/ACT Inhalatio*18 g 3 Sig: Inhale 2 Puffs by mouth in the morning and 2 Puffs at noon and 2 Puffs in the evening and 2 Puffs before bedtime. Authorizing Provider: CYN LARES * Telephone Encounter - Tawanna Bender, air carrier operations inspector - 03/30/2024 8:55 AM EDT Pending Prescriptions: Disp Refills ProAir HFA 108 (90 Base) MCG/ACT Inhalatio*18 g 3 Sig: Inhale 2 Puffs by mouth in the morning and 2 Puffs at noon and 2 Puffs in the evening and 2 Puffs before bedtime. * Telephone Encounter - Tawanna Bender PHARM Tech - 03/30/2024 8:53 AM EDT Received message from [facility] regarding patient needing appointment. Call Placed, Left message on voicemail to call back and schedule appointment. Thank you for your assistance Tawanna Bender Sap Treasury Consultant II [facility] 03/30/2024,8:53 AM * Telephone Encounter - Piter Mai [facility] - 03/30/2024 8:33 AM EDT Pending Prescriptions: Disp Refills ProAir HFA 108 (90 Base) MCG/ACT Inhalatio*18 g 3 Sig: Inhale 2 Puffs by mouth in the morning and 2 Puffs at noon and 2 Puffs in the evening and 2 Puffs before bedtime. * Telephone Encounter - Piter Mai [facility] - 03/30/2024 8:30 AM EDT Please contact patient so that an appointment can be scheduled with his PRIMARY CARE provider before this refill can be authorized. After contacting patient, please forward request to Cyn Lares MD. Last Visit: 08/27/2022 (in office), Visit date not found (telemedicine) Next Visit: Visit date not found Thank You, Piter Mai, Pharm-D Clinical Pharmacist [facility] ([facility]) [phone] 03/30/2024, 8:30 AM Did you pend patient's preferred pharmacy and medication before forwarding?yes Pharmacy: [id number] [address] [facility] Pending Prescriptions: Disp Refills ProAir HFA 108 (90 Base) MCG/ACT Inhalati*18 g 3 Sig: Inhale 2 Puffs by mouth in the morning and 2 Puffs at noon and 2 Puffs in the evening and 2 Puffs before bedtime. Last Visit: 08/27/2022 (in office), Visit date not found (telemedicine) Next Visit: Visit date not found If no future appointments scheduled, and last appointment is greater than a year ago, please schedule patient for a follow-up appointment Last date the medication was ordered: 12/15/2023 Is this request for a controlled substance?No Urine Drug Screen:No results found for this or any previous visit. Patient Phone Numbers [facility]erral [facility] (PRN) [phone] Labs: Lab Results Component Value Date/Time CREAT 0.96 10/29/2021 12:00 AM POTASSIUM 3.2 (A) 10/29/2021 12:00 AM documented in this encounter Plan of Treatment Health Maintenance Due Date Last Done Comments Yearly Wellness Visit 2007 Pneumococcal Vaccine: Pediat rics (0 to 5 Years) and At-Risk Patients (6 to 64 Years) (1 of 1 - PPSV23 or PCV20) 2009 07/24/2004, 2003, 2003, Additional history exists Depression Screening 2015 HIV Screening 2018 Hepatitis C Screening 2021 *SPIROMETRY ONCE FOR ASTHMA-ADULT 09/11/2022 COVID-19 Vaccine (3 - 2022-2 4 season) 2023 08/27/2021, 07/30/2021 DTaP,Tdap,and Td Vaccines (7 - Td or Tdap) 03/18/2032 03/18/2022, 02/12/2007, 07/24/2004, Additional history exists Hepatitis B Completed 2003, 04/19, 2003 MENINGOCOCCAL (MENACTRA/MENVEO) Completed 9 GARDASIL-HPV IMMUNIZATION SERIES Completed 03/18/2022, 07/26/2019, 05/26/2019 Influenza Vaccine (FLU shot) Completed , 09/10/2022, 07/30/2021 documented as of this encounter Medical Devices Not on filedocumented as of this encounter Visit Diagnoses Diagnosis Mild intermittent 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
--- OUTSIDE RECORDS SUMMARY | 2024-08-02 04:06 | External Medical Summary | Summary of Care ---
Author Name Unknown Organization [facility] Address [address] [place] [address] Phone [phone] Care Team Providers Care Plug Cutting Machine Operator Name Role Phone Jimi Angel MD Primary Care Provider [phone] [phone] Reason for Referral * Evaluate & Treat - Unlimited Visits (Within 10 days (routine)) - Authorized Specialty Diagnoses / Procedures Referred By Contcarmen t Referred To Contact Otolaryngology Diagnoses Tongue tie Jimi Angel MD [address] [place] [address] Referral ID Status Reason Start Date Expiration Date Visits Requested Visits Authorized [id number] Authorized Specialty Services Required 05/24/[phone] Question Answer Referral Priority Within 10 days (routine) Where should this appointment be scheduled? [facility] Reason for Referral Tongue/Oral Lesions Reason for Visit * Reason Comments Medication Management Encounter Details Date Type Department Care Team (Late st Contact Info) Description 05/24/2024 6:00 PM EDT Office Visit Family Practice [facility] [address] [address] Jimi Angel MD [address] [place] [address] Attention deficit disorder (ADD) without hyperactivity*; Tongue tie Allergies Active Allergy Reactions Criticality Noted Date Comments Peanut-Containing Drug Products Anaphylaxis High TREE NUTS documented as of this encounter (statuses as of 05/24/2024) Medications Medication Sig Dispensed Refills Start Date End Date Status EpiPen 2-Devon 0.3 MG/0.3ML Injection Solution Auto-injector For a severe reaction: Place orange end against the outer thigh, press firmly, hold in place for 10 seconds and go to the Emergency room. 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 18 g 3 4 Active Methylphenidate HCl ER (LA) 40 MG Oral Capsule Extended Release 24 Hour (Ritalin LA)Indications:Att ention deficit disorder (ADD) without hyperactivity Take 1 Capsule by mouth in the morning. In the morning. Do not cut, crush or chew. 30 Capsule 4 Active hydrOXYzine HCl 50 MG Oral Tablet Take by mouth 1 Tablet as needed in the morning AND 1 Tablet as needed at noon AND 1 Tablet as needed in the evening AND 1 Tablet as needed before bedtime for Anxiety. 120 Tablet 3 2 05/24/20 24 Discontinued Lisdexamfetamine Dimesylate 40 MG Oral Capsule (Vyvanse)Indicatio ns:Attention deficit disorder (ADD) without hyperactivity Take 1 Capsule by mouth in the morning. 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 (Adult - for ages 18 years and over) Not on file 04/05/2024 Is your family able to pay t he heat, water, or electric bill? (Household - for ages 0-17 years) Not on file 04/05/2024 Does your family have access to good internet? (Household - for ages 0-17 years) Not on file 04/05/2024 Social Connections Answer Date Recorded How often do you feel lonely or isolated from those around you? (Adult - for ages 18 years and over) Not on file 04/05/2024 Sex and Gender Information Value Date Recorded Sex Assigned at Not on file Gender Identity Not on file Sexual Orientation Not on file Job Start Date Occupation Industry Not on file Not on file Not on file documented as of this encounter Last Filed Vital Signs Vital Sign Reading Time Taken Comments Blood Pressure 124/84 05/24/2024 4:18 PM EDT Pulse 84 05/24/2024 4:18 PM EDT Temperature 36.6 C (97.8 F) 05/24/2024 4:18 PM ED T Respiratory Rate - - Oxygen Saturation - - Inhaled Oxygen Concentration - - Weight - - Height - - Body Mass Index - - documented in this encounter Progress Notes * Jimi Angel MD - 05/24/2024 4:37 PM EDT SUBJECTIVE: Carmen Mosley is a 19 year old male. Chief Complaint Patient presents with Medication Management HPI: Carmen is no longer able to afford his Vyvanse. He had been on Ritalin LA in the past and did very well with that. He is going into his bernice year at [employer]. 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 Patient Active Problem List Diagnosis History of [...] No current facility-administered medications for this visit. Allergy: Review of patient's allergies indicates: Allergen Reactions Peanut-Containing Drug Products Anaphylaxis TREE NUTS OBJECTIVE: BP 124/84 | Pulse 84 | Temp 36.6 C (97.8 F) (Tympanic) Gen: nad ASSESSMENT AND PLAN: (F98.8) Attention deficit disorder (ADD) without hyperactivity (primary encounter diagnosis) Plan: Methylphenidate HCl ER (LA) 40 MG Oral Capsule Extended Release 24 Hour (Ritalin LA) (Q38.1) Tongue tie Plan: ADULT/PEDS OTOLARYNGOLOGY REFERRAL OP Follow up as needed. No other complaints were offered at this time. Jimi Angel MD documented in this encounter Nursing Notes * Aliya Mcfarlane LPN - 05/24/2024 4:18 PM EDT The patient has been properly identified by confirmation of name and date of . Chief Complaint Patient presents with Medication Management documented in this encounter Plan of Treatment Upcoming Encounters Date Type Department Care Team (Late st Contact Info) Description 07/15/2024 1:30 PM EDT Office Visit Otolaryngology [facility] [address] [place] [address] Ankush Yan DO [address] [place] [address] Scheduled Referrals Name Type Priority Associated Diagnoses Order Schedule ADULT/PEDS OTOLARYNGOLOGY REFERRAL OP Referral Within 10 days (routine) Tongue tie Ordered: 05/24/2024 Health Maintenance Due Date Last Done Comments Yearly Wellness Visit 2007 Pneumococcal Vaccine: Pediat rics (0 to 5 Years) and At-Risk Patients (6 to 64 Years) (1 of 1 - PPSV23 or PCV20) 2009 07/24/2004, 2003, 2003, Additional history exists HIV Screening 2018 Hepatitis C Screening 2021 *SPIROMETRY ONCE FOR ASTHMA-ADULT 09/11/2022 COVID-19 Vaccine (3 - 2022-2 4 season) 2023 08/27/2021, 07/30/2021 Influenza Vaccine (FLU shot) (#1) 2024 10/05/2023, 09/10/2022, 07/30/2021 Depression Screening 05/24/2025 05/24/2024 DTaP,Tdap,and Td Vaccines (7 - Td or Tdap) 03/18/2032 03/18/2022, 02/12/2007, 07/24/2004, Additional history exists Hepatitis B Vaccine Completed 2003, 2003, 2003 MENINGOCOCCAL (MENACTRA/MENVEO) Completed 9 HPV (Gardasil) Vaccine Completed 2, 07/26/2019, 05/26/2019 documented as of this encounter Medical Devices Not on filedocumented as of this encounter Visit Diagnoses Diagnosis Attention 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
--- OUTSIDE RECORDS SUMMARY | 2024-08-02 04:06 | External Medical Summary | Summary of Care ---
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 30 Capsule 03/18/2024 Active ProAir HFA 108 (90 Base) MCG/ACT Inhalation Aerosol SolutionIndications:M ild intermittent cold-induced asthma without complication Inhale 2 Puffs by mouth in the morning and 2 Puffs at noon and 2 Puffs in the evening and 2 Puffs before bedtime. 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 021 History of drug abuse 08/26/2021 Attention deficit disorder (ADD) without hyperac tivity 08/26/2021 documented as of this encounter (statuses as of 05/11/2024) Immunizations Name Administration Dates Next Due COVID-19 mRNA, LNP-s, No Pre serve, 2-Dose Series (Moderna) 08/27/2021,07/30/2021 DTaP Dipth/Tet/Acell Pertussis (Infanrix), Peds 02/12/2007,07/24/2004,2003,05/08,2003 HIB PRP-T, 4 Dose, PF, IM (H iberix, ActHib) 04/24/2004,2003,2003,03/31 HPV Vaccine, 9-Valent 03/18/2022,07/26/2019,0805/2019 Hepatitis B, 0-19 yrs 2003,2003,02/17 MMR - [...] encounter Miscellaneous Notes * Telephone Encounter - Cedrick Hager [facility] - 05/11/2024 12:38 PM EDT Refused Prescriptions: Disp Refills ProAir HFA 108 (90 Base) MCG/ACT Inhalatio*18 g 3 Sig: Inhale 2Puffs by mouth in the morning and 2 Puffs at noon and 2 Puffs in the evening and 2 Puffs before bedtime.Refused By: CEDRICK HAGERReason for Refusal: Other (comment below)Reason for Refusal Comm ent: Sent MyG documented in this encounter Plan of Treatment Upcoming Encounters Date Type Department Care Team (Late st Contact Info) Description 05/24/2024 6:00 PM EDT Office Visit Family Practice [facility] [address] [address] Jimi Angel MD [address] [place] [address] Health Maintenance Due Date Last Done Comments [...] (FLU shot) (#1) 2024 10/05/2023, 09/10/2022, 07/30/2021 DTaP,Tdap,and Td Vaccines (7 - Td or Tdap) 03/18/2032 03/18/2022, 02/12/2007, 07/24/2004, Additional history exists Hepatitis B Vaccine Completed 2003, 2003, 2003 MENINGOCOCCAL (MENACTRA/MENVEO) Completed 9 HPV (Gardasil) Vaccine Completed 2, 07/26/2019, 05/26/2019 documented as of this encounter Medical Devices Not on filedocumented as of this encounter Visit Diagnoses Diagnosis 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
--- OUTSIDE RECORDS SUMMARY | 2024-08-02 04:06 | External Medical Summary | Summary of Care ---
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 Allergies Active Allergy Reactions Criticality Noted Date Comments Peanut-Containing Drug Products Anaphylaxis High TREE NUTS documented as of this encounter (statuses as of 05/23/2024) Medications Medication Sig Dispensed Refills Start Date [...] as of this encounter (statuses as of 05/23/2024) Active Problems Problem Noted Date Diagnosed Date ZACH (generalized anxiety disorder) 01/15/2022 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 021 History of drug abuse 08/26/2021 Attention deficit disorder (ADD) without hyperac tivity 08/26/2021 documented as of this encounter (statuses as of 05/23/2024) Immunizations Name Administration Dates Next Due COVID-19 [...] encounter Miscellaneous Notes * Telephone Encounter - Nora Donnelly RPh - 05/23/2024 10:19 AM EDT Refused Prescriptions: Disp Refills ProAir HFA 108 (90 Base) MCG/ACT Inhalatio*18 g 3 Sig: Inhale 2Puffs by mouth in the morning and 2 Puffs at noon and 2 Puffs in the evening and 2 Puffs before bedtime.Refused By: NORA DONNELLY for Refusal: Duplicate RequestReason for Refusal Comment: refills remain - pt contacted prev enc documented in this encounter Plan of Treatment Upcoming Encounters Date Type Department Care Team (Late st Contact Info) Description 05/24/2024 6:00 PM EDT Office Visit Family Practice [facility] [address] [place] [address] Jimi Angel MD [address] [place] [address] Health Maintenance Due Date Last Done Comments [...] complication documented in this encounter Care Teams Geological Survey Field Assistant Relationship Specialty Start Date End Date Jimi Angel MD [address] [address] PCP - General Family Medicine 01/15/22 documented as of this encounter
--- OUTSIDE RECORDS SUMMARY | 2024-08-02 04:06 | External Medical Summary | Summary of Care ---
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 In the morning. Do not cut, crush or chew. 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 18 g 3 03/30/2024 4 Discontinue d(Refill) Methylphenidate HCl ER (LA) 40 MG Oral Capsule Extended Release 24 Hour (Ritalin LA)Indications:Atte ntion deficit disorder (ADD) without hyperactivity Take 1 Capsule by mouth in the morning. In the morning. Do not cut, crush or chew. 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 Authorizing Provider: CYN LARES Ordering User: SHILOH MORALES Methylphenidate HCl ER (LA) 40 MG Oral Cap*30 Cap*0 Sig: Take 1 Capsule by mouth in the morning. In the morning. Do not cut, crush or chew. Authorizing Provider: CYN LARES * Telephone Encounter - Shiloh Morales [facility] - 07/19/2024 9:28 AM EDTPending Prescriptions: Disp Refills Methylphenidate HCl ER (LA) 40 MG Oral Cap*30 Cap*0 Sig: Take 1 Capsule by mouth in the morning. In the morning. Do not cut, crush or chew. Signed Prescriptions: Disp Refills ProAir HFA 108 (90 Base) MCG/ACT Inhalatio*18 g 3 Sig: Inhale 2 Puffs by mouth in the morning and 2 Puffs at noon and 2 Puffs in the evening and 2 Puffs before bedtime. Authorizing Provider: CYN LARES Ordering User: SHILOH MORALES * Telephone Encounter - Shiloh Morales RPh - 07/19/2024 9:27 AM EDT I have reviewed the patients controlled substance dispensing history in the Prescription Drug Monitoring Program in compliance with the [facility] regulations before prescribing a controlled substance. PDMP checked on 07/19/2024. Pending Prescriptions: Disp Refills ProAir HFA 108 (90 Base) MCG/ACT Inhalati*18 g 3 Sig: Inhale 2 Puffs by mouth in the morning and 2 Puffs at noon and 2 Puffs in the evening and 2 Puffs before bedtime. Methylphenidate HCl ER (LA) 40 MG Oral Ca*30 Cap*0 Sig: Take 1 Capsule by mouth in the morning. In the morning. Do not cut, crush or chew. Last Visit: 05/24/2024 (in office), Visit date not found (telemedicine) Next Visit: Visit date not found Date medication was last filled: 05/24/24 Date medication is due for refill: 06/22/24 Pharmacy: [id number] Is this request for a controlled substance? Yes and Urine Drug Screen Not completed Toxicology results: No results found for this or any previous visit. Please approve if appropriate. 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
--- OUTSIDE RECORDS SUMMARY | 2024-08-02 04:06 | External Medical Summary | Summary of Care ---
Author Name Unknown Organization [facility] Address [address] [place] [address] Phone [phone] Care Team Providers Care Claims Support Specialist Name Role Phone Cyn Lares MD Primary Care Provider [phone] Reason for Visit * Reason Onset Date Comments Medication Refill 03/16/2024 Encounter Details Date Type Department Care Team (Late st Contact Info) Description 03/16/2024 Refill Family Practice [facility] [address] [place] [address] Cyn Lares MD [address] [place] [address] Attention deficit disorder (ADD) without hyperactivity Allergies Active Allergy Reactions Criticality Noted Date Comments Peanut-Containing Drug Products Anaphylaxis High TREE NUTS documented as of this encounter (statuses as of 03/18/2024) Medications Medication Sig Dispensed Refills Start Date [...] for Anxiety. 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 18 g 3 12/15/2023 Active Lisdexamfetamine Dimesylate 40 MG Oral Capsule (Vyvanse)Indication s:Attention deficit disorder (ADD) without hyperactivity Take 1 Capsule by mouth in the morning. 30 Capsule 03/18/2024 Active Lisdexamfetamine Dimesylate 40 MG Oral Capsule (Vyvanse)Indication s:Attention deficit disorder (ADD) without hyperactivity Take 1 Capsule by mouth in the morning. 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 021 History of drug abuse 08/26/2021 Attention deficit disorder (ADD) without hyperac tivity 08/26/2021 documented as of this encounter (statuses as of 03/18/2024) Immunizations Name Administration Dates Next Due COVID-19 mRNA, LNP-s, No Pre serve, 2-Dose Series (Moderna) 08/27/2021,07/30/2021 DTaP Dipth/Tet/Acell Pertussis (Infanrix), Peds 02/12/2007,07/24/2004,2003,05/08,2003 HIB PRP-T, 4 dose (ActHib) 04/24/2004,,2003,03/31 HPV Vaccine, 9-Valent 03/18/2022,07/26/2019,05/2019 Hepatitis B, 0-19 [...] Telephone Encounter - Cyn Lares MD - 03/18/2024 8:14 AM EDTSigned Prescriptions: Disp Refills Lisdexamfetamine Dimesylate 40 MG Oral Cap*30 Cap*0 Sig: Take 1 Capsule by mouth in the morning. Authorizing Provider: CYN LARES * Telephone Encounter - Maddy Sanders [facility] - 03/18/2024 8:09 AM EDTPending Prescriptions: Disp Refills Lisdexamfetamine Dimesylate 40 MG Oral Cap*30 Cap*0 Sig: Take 1 Capsule by mouth in the morning. * Telephone Encounter - Maddy Sanders [facility] - 03/18/2024 8:08 AM EDT I have reviewed the patients controlled substance dispensing history in the Prescription Drug Monitoring Program in compliance with the [facility] regulations before prescribing a controlled substance. PDMP checked on 03/18/2024. Pending Prescriptions: Disp Refills Lisdexamfetamine Dimesylate 40 MG Oral Ca*30 Cap*0 Sig: Take 1 Capsule by mouth in the morning. Last Visit: 08/27/2022 (in office), Visit date not found (telemedicine) Next Visit: Visit date not found Date medication was last filled: 12/16/23 Date medication is due for refill: Pharmacy: [id number] [facility] Is this request for a controlled substance? Yes and Urine Drug Screen Not completed Toxicology results: No results found for this or any previous visit. Please approve if appropriate. Thank You, Maddy Sanders [facility] Clinical Pharmacist Centralized Clinical Pharmacy Services ([facility]) (formerly Telepharmacy) [phone] 03/18/2024, 8:08 AM documented in this encounter Plan of [...] Diagnoses Diagnosis Attention deficit disorder (ADD) without hyperactivity documented in this encounter Care Teams Claims Support Specialist Relationship Specialty Start Date End Date Cyn Lares MD [address] [address] PCP - General Family Medicine 01/15/22 documented as of this encounter
[2024-08-02 06:24] LABS: Hematocrit (blood only) 35.7 % (42.0-52.0); Hemoglobin 12.5 g/dl (14.0-18.0); Mean Corpuscular Volume 88.6 fL (80.0-100.0); Mean Platelet Volume 9.6 fL (9.4-12.4); Platelet Count 336 K/uL (130-400); RDW Standard Deviation 39.1 fL (36.4-46.3); Red Blood Count 4.03 M/uL (4.70-6.10); White Blood Count 14.56 K/ul (4.8-10.8)
[2024-08-02 06:40] LABS: BUN Creatinine Ratio 13.1 (10-20); Calcium 8.7 mg/dl (8.6-10.3); Creatinine Clr Calc Pharmacy 151.5 ml/min; Phosphorus 3.7 mg/dl (2.5-4.9); Potassium 4.3 mmol/L (3.5-5.1)
--- NOTE | 2024-08-02 07:37 | Hospitalist Progress Note ---
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 See full HPI. Patient has history of needing multiple doses of epinephrine followed by epinephrine drip and ICU stay in the past. Patient received Benadryl, famotidine, Solu-Medrol in the ED. At bedside exam, no wheezing noted, patient on 3 L nasal cannula oxygen, patient reports improving symptoms. Epinephrine as needed every 5-minute, if needing more frequently, patient will need ICU transfer for possible epinephrine drip. Continue with famotidine, Solu-Medrol, Benadryl, albuterol nebulization currently scheduled/can de-escalate to as needed once respiratory status improves. Will monitor patient in PCU telemetry. N.p.o. for now, Continue with IV fluids. Diet can be resumed once deemed stable from anaphylaxis standpoint. F/u w/ telecommunications support once discharged. Pt advised to carry epipen with him all the time. 08/02/2024 Pt feels much improved. Will start liquid diet and will cont. to closely monitor. History of gout: Continue with IV PPI. Patient on IV Pepcid as well. DVT prophylaxis: SCDs, Expect discharge in less than 3 days. Full code Admission and Anticipated Discharge Date Admission Date: August 01, 2024 Subjective Pt seen in follow up of anaphylaxis (d/t tree nuts ingestion) Sitting up in bed in NAD Denies any shortness of breath, wheezing, throat swelling at this time. Feels much improved. Also no fever, chills, chest pain, or abd. pain Discussed w/ RN - will start liquid diet and will closely monitor. Review of Systems Review of Systems: All systems reviewed & are unremarkable except as noted in Subjective Physical Exam Physical Exam: GENERAL: young slim M. Alert and oriented x3. NAD, on RA HEENT: NC/AT. Pupils equal, round and reactive to light. Oral mucosa moist. Mild lip swelling noted, no tongue swelling noted. NECK: No JVD, no neck masses. HEART: S1 and S2 heard. Regular. Tachy in low 100s. No murmur, no gallop. RESPIRATORY SYSTEM: Normal AP diameter. No accessory muscle use. No wheezing, no crackles. ABDOMEN: Soft, nontender, + bowel sounds NEURO: Awake, alert, answers appropriately. speech fluent. Moves extremities. EXTREMITIES: No edema, no erythema seen. Results & Data Results & Data Vital Signs (Past 12 Hours) Vital Signs Temp Pulse Pulse Resp BP BP Pulse Ox 08/02/24 07:16 101 H 18 97 08/02/24 03:15 36.4 C L 95 H 18 114/69 96 08/02/24 02:56 116 H 08/01/24 23:28 116 H 20 98 08/01/24 23:03 97 08/01/24 22:50 37.1 C 103 H 18 114/65 96 08/01/24 21:45 36.5 C 116 H 18 146/80 H 97 08/01/24 21:00 114 H 20 137/71 98 08/01/24 20:30 106 H 17 137/73 97 O2 Del Method O2 Flow Rate 08/02/24 07:16 Room Air 08/02/24 03:15 Room Air 08/02/24 02:56 08/01/24 23:28 Room Air 08/01/24 23:03 Room Air 08/01/24 22:50 Room Air 08/01/24 21:45 Room Air 08/01/24 21:00 Room Air 08/01/24 20:30 Nasal Cannula 3 Laboratory Results 08/02/24 08/01/24 Range/Units 06:07 19:00 WBC 14.56 H 18.68 H (4.8-10.8) K/ul RBC 4.03 L 4.65 L (4.70-6.10) M/uL Hgb 12.5 L 14.9 (14.0-18.0) g/dl Hct 35.7 L 40.0 L (42.0-52.0) % MCV 88.6 86.0 (80.0-100.0) fL MCH 31.0 31.8 (25.0-34.0) pg MCHC 35.0 37.2 H (32.0-36.0) g/dL RDW Std Deviation 39.1 37.1 (36.4-46.3) fL RDW Coeff of Dimple 12.0 11.8 (11.5-14.5) % Plt Count 336 472 H (130-400) K/uL MPV 9.6 9.6 (9.4-12.4) fL Immature Gran % (Auto) 0.3 % Neut % (Auto) 76.1 % Lymph % (Auto) 18.3 % Ulster % (Auto) 3.9 % Eos % (Auto) 1.2 % Baso % (Auto) 0.2 % Neut # (Auto) 14.23 H (1.40-6.50) K/uL Lymph # (Auto) 3.41 H (1.20-3.40) K/uL Ulster # (Auto) 0.73 H (0.11-0.59) K/uL Eos # (Auto) 0.22 (0.00-0.50) K/uL Baso # (Auto) 0.03 (0.00-0.20) K/uL Immature Gran # (Auto) 0.06 (0.01-0.20) K/uL Sodium 137 137 (136-145) mmol/L Potassium 4.3 D 3.2 L (3.5-5.1) mmol/L Chloride 105 107 (98-107) mmol/L Carbon Dioxide 25 23 (21-32) mmol/L Anion Gap 7 7 (3-11) BUN 11 11 (6-23) mg/dl Creatinine 0.84 0.77 (0.6-1.4) mg/dl Est Cr Clr Drug Dosing 151.5 165.3 ml/min eGFR 127.24 130.62 BUN/Creatinine Ratio 13.1 14.3 (10-20) Glucose 131 H 134 H (70-99(Fasting)) mg/dl Calcium 8.7 8.3 L (8.6-10.3) mg/dl Phosphorus 3.7 (2.5-4.9) mg/dl Magnesium 2.0 (1.7-2.4) mg/dl Medications Administered Current Inpatient Medications Albuterol (Albuterol 0.083% Nebu Soln 3 Ml Vial) 2.5 mg NEB Q4H DUYEN; Protocol Stop: 08/31/24 19:29 Last Admin: 08/02/24 07:15 Dose: 2.5 mg Diphenhydramine HCl (Diphenhydramine 50 Mg/Ml Vial) 25 mg IV Q6H DUYEN Stop: 08/31/24 20:59 Last Admin: 08/01/24 23:13 Dose: 25 mg Epinephrine HCl (Epinephrine Inj 1 Mg/Ml Amp) 0.3 mg IM Q5M PRN PRN Reason: anaphylaxis reaction Stop: 08/31/24 19:29 Sodium Chloride (Nss) 1,000 mls @ 75 mls/hr IV .[id number] DUYEN Stop: 08/02/24 22:09 Last Admin: 08/01/24 20:44 Dose: 75 mls/hr Famotidine (Pepcid 20mg Iv Push) 20 mg in 5 mls @ 2.5 mls/min IV Q12H DUYEN Stop: 09/01/24 08:59 Pantoprazole Sodium (Protonix) 40 mg in 10 mls @ 5 mls/min IV DAILY DUYEN Stop: 09/01/24 08:59 Methylprednisolone 60 mg/ (Syringe) 0.96 mls @ 1.5 mls/min IV DAILY DUYEN Stop: 09/01/24 08:59 Influenza Virus Vacc Triv Types A&B (Influenza Vacc [id number](6m+)/Pf (Iiv3) 0.5ml Syr) 0.5 ml IM .ONCE ONE Stop: 08/02/24 09:01 Ondansetron HCl (Ondansetron Inj 2 Mg/Ml 2 Ml Vial) 4 mg IV Q6H PRN PRN Reason: Nausea Stop: 08/31/24 19:28 (1) Anaphylaxis Encounter type: initial encounter Qualified Code(s): T78.2XXA - Anaphylactic shock, unspecified, initial encounter
[2024-08-02] MEDS ORDERED: ALBUTEROL 0.083% NEBU SOLN 3 ML VIAL NEB PRN (07:38)
[2024-08-02] MEDS: FAMOTIDINE 20MG IV PUSH 20 MG/5 ML SYR IV SCH (07:44)
[2024-08-02] MEDS: methylPREDNISolone 60 MG in SYRINGE 0 ML IV SCH (07:45)
[2024-08-02] MEDS ORDERED: methylPREDNISolone 125 MG/2 ML VIAL IV SCH (09:00)
[2024-08-02] MEDS: PANTOprazole 40 MG/10 ML SYR IV SCH (09:11)
[2024-08-02 11:42] VITALS: BP 104/63; RESP 20; TEMP 97.9; O2SAT 98
--- NOTE | 2024-08-02 14:42 | Discharge Summary ---
Date of Service August 02, 2024 Admission HPI Per Admitting Provider 19-year-old male with PMH of allergic reaction to tree nuts, past hospitalization with anaphylaxis [latest one in 2017, needed ICU stay and epinephrine drip], GERD diagnosed recently and on Protonix & Pepcid at home, asthma presented to the ED with developing allergic reaction after he ingested tree nut containing food today. He did not have EpiPen with him, his first EpiPen dose was in the ED. At presentation, patient was wheezing, had choking sensation, palpitation, had belly pain. After first dose of epi, he improved and then again he started getting wheezing and respiratory distress. He received another dose of epinephrine with improvement in his symptoms. No stridor or tongue swelling was noted per ED physician. Patient reports drinking alcohol over the weekends, reports vaping nicotine, denies recreational drug use. Full code as per my discussion with the patient and his family at bedside. Patient's friend/sister/mom were at bedside, medications were reviewed in detail, plan of care discussed in detail. They voiced understanding and were agreeable to plan of care. Admission Exam Per Admitting Provider GENERAL: Alert and oriented x3. NAD, on 3L NC O2. Flushed appearance of face and upper body skin. HEENT: No pallor, no icterus. Pupils equal, round and reactive to light. Oral mucosa moist. Mild lip swelling noted, no tongue swelling noted. NECK: No JVD, no neck masses. HEART: S1 and S2 heard. Regular rate and rhythm. Tachy in 110s. No murmur, no gallop. RESPIRATORY SYSTEM: Normal AP diameter. No accessory muscle use. No wheezing, no crackles. ABDOMEN: Soft, bowel sounds present, Mild epi tender noted, no distention. CENTRAL NERVOUS SYSTEM: No facial droop. Speech is clear. Obeys simple commands. Moves extremities. EXTREMITIES: No edema, no erythema seen. Principal Diagnosis Anaphylaxis Discharge Exam GENERAL: young slim M. Alert and oriented x3. NAD, on RA HEENT: NC/AT. Pupils equal, round and reactive to light. Oral mucosa moist. no tongue swelling NECK: No JVD, no neck masses. HEART: S1 and S2 heard. Regular. Tachy in low 100s. No murmur, no gallop. RESPIRATORY SYSTEM: Normal AP diameter. No accessory muscle use. No wheezing, no crackles. ABDOMEN: Soft, nontender, + bowel sounds NEURO: Awake, alert, answers appropriately. speech fluent. Moves extremities. EXTREMITIES: No edema, no erythema seen. 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 See full HPI. Patient has history of needing multiple doses of epinephrine followed by epinephrine drip and ICU stay in the past. Patient received Benadryl, famotidine, Solu-Medrol in the ED. At bedside exam, no wheezing noted, patient on 3 L nasal cannula oxygen, patient reports improving symptoms. Epinephrine as needed every 5-minute, if needing more frequently, patient will need ICU transfer for possible epinephrine drip. Continue with famotidine, Solu-Medrol, Benadryl, albuterol nebulization currently scheduled/can de-escalate to as needed once respiratory status improves. Will monitor patient in PCU telemetry. N.p.o. for now, Continue with IV fluids. Diet can be resumed once deemed stable from anaphylaxis standpoint. F/u w/ journal box inspector once discharged. Pt advised to carry epipen with him all the time. 08/02/2024 Pt feels much improved. Will start liquid diet and will cont. to closely monitor. Update: diet advanced and pt tolerated well. Pt requests discharge. As there are no signs or symptoms of allergic reaction and pt can take PO will DC on PO meds, and will send Rx for Epi pen to pt's pharmacy as well - will need follow up w/ PCP and journal box inspector. Total Time Total Time Spent Total Time Spent (In Minutes): 40 Discharge Plan Discharge Items Patient Disposition: Home - Self-Care Reason For Visit: ANAPHYLAXIS Discharge Diagnosis: Anaphylaxis Activity: Per Instructions section Non-emergency contact: Primary Care Provider and Specialist Call non-emergency contact if: you have any medication questions and your symptoms worsen Follow-up/Referrals: Jimi Angel MD [Primary Care Provider] - Diet: Regular Addtl Attending Provider Instructions: Follow up with primary care physician and journal box inspector. Continue taking prednisone, benadryl, zyrtec, famotidine for next 3 days and monitor for any signs or symptoms of allergic reaction. In case of severe reaction, use an epi pen as directed. Contact your health care provider with any concerns or questions, or in case of severe reaction, present to the nearest emergency room. Pending Studies at Discharge: No Stand-Alone Forms: My [facility] [employer], Smoking Cessation Medications and DC Order Prescriptions: New prednisone 50 mg tablet 50 mg PO DAILY 3 Days Qty: 3 0RF diphenhydramine HCl [Allergy Medication] 25 mg capsule 25 mg PO TID 3 Days Qty: 9 0RF epinephrine 0.3 mg/0.3 mL auto-injector 0.3 mg IM Q4H PRN (Reason: anaphylaxis) Qty: 1 0RF cetirizine 10 mg Tablet 10 mg PO QAM 3 Days Qty: 3 0RF Continued ondansetron HCl 4 mg tablet 4 mg PO Q8H PRN (Reason: n/v) famotidine 20 mg tablet 20 mg PO BID pantoprazole 40 mg tablet,delayed release (DR/EC) 40 mg PO DIRECTED albuterol sulfate 90 mcg/actuation HFA aerosol inhaler 2 puff INHALATION TID naproxen 500 mg tablet 500 mg PO BID PRN (Reason: Pain) methylphenidate HCl 40 mg capsule,ER biphasic 50-50 40 mg PO QAM Discharge Orders: Discharge Order (Routine); Ordered 08/02/24 Ordered By: Piter Walls Admission Data Admit Date/Time: 08/01/24 20:12 Attending Provider: Piter Walls Admit Provider: Thanh Aguillon Primary Care Provider: Jimi Angel Other Providers: Thanh Aguillon
[2024-08-02] MEDS: CETIRIZINE HCL 10 MG TABLET PO SCH (15:25)
[2024-08-02] MEDS: INFLUENZA VACC TS2024-25(6m+)/PF (IIV3) 0.5mL Syr IM ONE (15:30)
[2024-08-02 15:39] VITALS: PULSE 102
== END 2024-08-02 16:00 | disposition home or self-care (01) | DRG 916 ==
LOC: ED 17:35 → 2S 20:12 → SUATTDRO 20:12 → 2S 21:09